=== PATIENT | female | born 1950 | race Caucasian/White ===

== ENCOUNTER 2016-03-28 22:14 | Inpatient (IN) | payer MEDICARE, OTHER ==
[~2016-03-28] VITALS: Ht 162.6 cm; Wt 69.4 kg
[2016-03-28] MEDS ORDERED: HYDROCODONE/APAP 5/325MG 1 EACH TABLET ONE (22:46)
[2016-03-28] MEDS ORDERED: HYDROCODONE/APAP 5/325MG 1 EACH TABLET PO ONE (23:30)
[2016-03-29] MEDS ORDERED: HYDROCODONE/APAP 5/325MG 1 EACH TABLET PO PRN ×2 (01:30→04:30)
[2016-03-29] MEDS ORDERED: HYDROCODONE/APAP 5/325MG 1 EACH TABLET ONE (01:31)
[2016-03-29 01:37] LABS: BASOPHILS % (AUTO) 0.3 % (0.0-2.0); DIFF TOTAL % 100 %; EOSINOPHILS # (AUTO) 0.1 /CMM (0.0-0.7); EOSINOPHILS % (AUTO) 1.1 % (0.0-6.0); HEMATOCRIT 33 % (33-45); HEMOGLOBIN 11.3 g/dL (11.5-14.8); LYMPHOCYTES # (AUTO) 1.7 /CMM (0.8-4.8); LYMPHOCYTES % (AUTO) 17.2 % (20.0-44.0); MEAN CORPUSCULAR HEMOGLOBIN 31 PG (26.0-33.0); MEAN CORPUSCULAR HGB CONC 34 g/dl (31.0-36.0); MEAN CORPUSCULAR VOLUME 92 fL (82-100); MONOCYTES # (AUTO) 0.5 /CMM (0.1-1.30); MONOCYTES % (AUTO) 5.2 % (2.0-12.0); NEUTROPHILS # (AUTO) 7.7 /CMM (1.8-8.9); NEUTROPHILS % (AUTO) 76.2 % (43.0-81.0); PLATELET COUNT (AUTO) 270 /CMM (150-450); RED BLOOD CELL COUNT(AUTO) 3.62 MIL/uL (4.0-5.2); WHITE BLOOD COUNT (AUTO) 10.1 K/uL (4.3-11.0)
[2016-03-29 01:43] LABS: CREATININE 0.7 mg/dL (0.6-1.3); POTASSIUM 3.9 mmol/L (3.5-5.1)
[2016-03-29 01:49] LABS: CALCIUM, SERUM 8.3 mg/dL (8.5-10.1)
[2016-03-29 02:03] LABS: INR 1.06 (0.87-1.13); PROTHROMBIN TIME 11.1 SECS (9.5-12.7)
[2016-03-29 02:45] VITALS: BP 138/74
[2016-03-29] MEDS ORDERED: HYDROCODONE/APAP 10/325MG 1 EA TABLET ONE (04:10)
[2016-03-29] MEDS ORDERED: HYDROCODONE/APAP 10/325MG 1 EA TABLET PO PRN (04:30)
[2016-03-29] MEDS ORDERED: ONDANSETRON HCL/PF 4 MG/2 ML VIAL IVP PRN ×2 (04:30→18:30)
[2016-03-29] MEDS ORDERED: ZOLPIDEM TARTRATE 5 MG TABLET PO PRN (04:30)
[2016-03-29] MEDS ORDERED: MAG HYDROX/AL HYDROX/SIMETH 30 ML UDC PO PRN (04:30)
[2016-03-29] MEDS ORDERED: ACETAMINOPHEN 325 MG TABLET PO PRN (04:30)
[2016-03-29] MEDS ORDERED: MORPHINE SULFATE INJ 2 MG/ML DISP.SYRIN IV PRN (04:30)
[2016-03-29] MEDS ORDERED: MAGNESIUM HYDROXIDE 30 ML UDC PO PRN (04:30)
[2016-03-29] MEDS: PANTOPRAZOLE 40 MG TABLET.DR PO SCH (07:30)
[2016-03-29 08:00] VITALS: BP 119/63
[2016-03-29 08:20] LABS: PHOSPHORUS 3.4 mg/dL (2.5-4.9)
[2016-03-29 08:44] LABS: TROPONIN I < 0.017 ng/mL (0.00-0.056)
[2016-03-29] MEDS ORDERED: ATENOLOL 25 MG TABLET PO SCH (09:00)
[2016-03-29] MEDS ORDERED: FENTANYL PF 100MCG/2ML AMPUL ONE ×3 (15:05→18:17)
[2016-03-29] MEDS ORDERED: MIDAZOLAM HCL 2 MG/2ML VIAL ONE (15:05)
[2016-03-29] MEDS ORDERED: BACITRACIN 50000 UNITS/VIAL ONE (15:08)
[2016-03-29 15:19] LABS: IRON, SERUM 35 ug/dl (50-175); PERCENT SATURATION 15 % (14-33); TOTAL IRON BINDING CAPACITY 231 ug/dl (250-450)
[2016-03-29 16:45] LABS: CHOLESTEROL 146 mg/dL (<200); HDL CHOLESTEROL 37 mg/dL (40-60); LDL 95 mg/dL (0-99); THYROID STIMULATING HORMONE 3.991 uIU/mL (0.358-3.74); TRIGLYCERIDES 77 mg/dL (30-150)
[2016-03-29] MEDS: GABAPENTIN 300 MG CAPSULE PO SCH ×2 (17:47→21:26)
[2016-03-29] MEDS ORDERED: MORPHINE SULFATE INJ 4 MG/ML DISP.SYRIN IV PRN (18:30)
[2016-03-29] MEDS ORDERED: oxyCODONE/APAP (5/325 MG) 1 UDTAB TABLET PO PRN ×2 (18:30)
[2016-03-29 20:00] VITALS: BP 106/62
[2016-03-29] MEDS ORDERED: ONDANSETRON HCL/PF 4 MG/2 ML VIAL IV PRN (20:00)
[2016-03-29] MEDS ORDERED: ONDANSETRON HCL/PF 4 MG/2 ML VIAL IV ONE ×2 (20:00)
[2016-03-29] MEDS: ATENOLOL 25 MG TABLET PO SCH (21:33)
[2016-03-30] MEDS ORDERED: IV SET PRIMARY 1 EA INFUS.SET MC ONE (00:01)
[2016-03-30] MEDS: ANCEF 1 GM/50 ML D5W IV SCH ×6 (00:11→17:31)
[2016-03-30 07:49] LABS: BASOPHILS % (AUTO) 0.5 % (0.0-2.0); DIFF TOTAL % 100 %; EOSINOPHILS # (AUTO) 0.1 /CMM (0.0-0.7); EOSINOPHILS % (AUTO) 1.2 % (0.0-6.0); HEMATOCRIT 32 % (33-45); HEMOGLOBIN 10.7 g/dL (11.5-14.8); LYMPHOCYTES # (AUTO) 1.5 /CMM (0.8-4.8); LYMPHOCYTES % (AUTO) 15.4 % (20.0-44.0); MEAN CORPUSCULAR HEMOGLOBIN 31 PG (26.0-33.0); MEAN CORPUSCULAR HGB CONC 34 g/dl (31.0-36.0); MEAN CORPUSCULAR VOLUME 93 fL (82-100); MONOCYTES # (AUTO) 0.8 /CMM (0.1-1.30); MONOCYTES % (AUTO) 8.5 % (2.0-12.0); NEUTROPHILS # (AUTO) 7.2 /CMM (1.8-8.9); NEUTROPHILS % (AUTO) 74.4 % (43.0-81.0); PLATELET COUNT (AUTO) 251 /CMM (150-450); RED BLOOD CELL COUNT(AUTO) 3.44 MIL/uL (4.0-5.2); WHITE BLOOD COUNT (AUTO) 9.6 K/uL (4.3-11.0)
[2016-03-30 08:00] VITALS: BP 97/57
[2016-03-30 08:09] LABS: TROPONIN I 0.019 ng/mL (0.00-0.056)
[2016-03-30 08:11] LABS: ALBUMIN 3.3 g/dL (3.4-5.0); BILIRUBIN,TOTAL 0.4 mg/dL (0.2-1.0); CREATININE 0.8 mg/dL (0.6-1.3); POTASSIUM 3.8 mmol/L (3.5-5.1); TOTAL PROTEIN, SERUM 6.2 g/dL (6.4-8.2)
[2016-03-30] MEDS ORDERED: IV SET PRIMARY PUMP SET 1 EA INFUS.SET MC ONE (08:34)
[2016-03-30] MEDS ORDERED: IV NS 0.9% 250 ML IV ONE (08:34)
[2016-03-30] MEDS ORDERED: SECONDARY IV SET 1 EA INFUS.SET MC ONE (08:34)
[2016-03-30] MEDS: PANTOPRAZOLE 40 MG TABLET.DR PO SCH (08:35)
[2016-03-30] MEDS: LEVOTHYROXINE SODIUM 125 MCG TABLET PO SCH (08:42)
[2016-03-30] MEDS ORDERED: BUPIVACAINE 0.5 % PF 150 MG/30 ML VIAL ONE (09:13)
[2016-03-30] MEDS: HYDROCODONE/APAP 5/325MG 1 EACH TABLET PO PRN ×3 (09:26→20:28)
[2016-03-30] MEDS: HYDROCODONE/APAP 10/325MG 1 EA TABLET PO PRN (12:19)
[2016-03-30] MEDS: ENOXAPARIN SODIUM 40 MG/0.4 ML DISP.SYRIN SQ SCH (15:56)
[2016-03-30 16:00] VITALS: BP 108/59
[2016-03-30] MEDS: GABAPENTIN 300 MG CAPSULE PO SCH ×2 (17:32→23:12)
[2016-03-30 20:00] VITALS: BP 121/72
[2016-03-30 22:00] VITALS: BP 121/72
[2016-03-30] MEDS: ATENOLOL 25 MG TABLET PO SCH (22:07)
[2016-03-31 07:58] LABS: BASOPHILS % (AUTO) 0.5 % (0.0-2.0); DIFF TOTAL % 100 %; EOSINOPHILS # (AUTO) 0.1 /CMM (0.0-0.7); EOSINOPHILS % (AUTO) 0.8 % (0.0-6.0); HEMATOCRIT 30 % (33-45); HEMOGLOBIN 10.3 g/dL (11.5-14.8); LYMPHOCYTES # (AUTO) 1.1 /CMM (0.8-4.8); LYMPHOCYTES % (AUTO) 12.1 % (20.0-44.0); MEAN CORPUSCULAR HEMOGLOBIN 32 PG (26.0-33.0); MEAN CORPUSCULAR HGB CONC 34 g/dl (31.0-36.0); MEAN CORPUSCULAR VOLUME 93 fL (82-100); MONOCYTES # (AUTO) 0.9 /CMM (0.1-1.30); MONOCYTES % (AUTO) 9.8 % (2.0-12.0); NEUTROPHILS # (AUTO) 6.9 /CMM (1.8-8.9); NEUTROPHILS % (AUTO) 76.8 % (43.0-81.0); PLATELET COUNT (AUTO) 232 /CMM (150-450); RED BLOOD CELL COUNT(AUTO) 3.23 MIL/uL (4.0-5.2)
[2016-03-31 08:00] VITALS: BP_SYST 122; BP_SYST 90; BP_DIAS 58; BP_DIAS 68
[2016-03-31 08:17] LABS: CREATININE 0.7 mg/dL (0.6-1.3); POTASSIUM 3.9 mmol/L (3.5-5.1)
[2016-03-31] MEDS: PANTOPRAZOLE 40 MG TABLET.DR PO SCH (08:29)
[2016-03-31] MEDS: LEVOTHYROXINE SODIUM 125 MCG TABLET PO SCH (08:29)
[2016-03-31 16:00] VITALS: BP 110/64
[2016-03-31] MEDS: GABAPENTIN 300 MG CAPSULE PO SCH ×2 (16:48→21:44)
[2016-03-31 18:00] VITALS: BP 110/64
[2016-03-31 20:00] VITALS: BP 109/66
[2016-03-31 21:00] VITALS: BP 109/68
[2016-03-31] MEDS: ATENOLOL 25 MG TABLET PO SCH (21:44)
[2016-03-31] MEDS: ENOXAPARIN SODIUM 40 MG/0.4 ML DISP.SYRIN SQ SCH (21:48)
[2016-04-01] MEDS: HYDROCODONE/APAP 10/325MG 1 EA TABLET PO PRN (04:15)
[2016-04-01 08:00] VITALS: BP 114/66
[2016-04-01 08:41] LABS: BASOPHILS % (AUTO) 0.5 % (0.0-2.0); DIFF TOTAL % 100 %; EOSINOPHILS # (AUTO) 0.1 /CMM (0.0-0.7); EOSINOPHILS % (AUTO) 2.1 % (0.0-6.0); HEMATOCRIT 28 % (33-45); HEMOGLOBIN 9.6 g/dL (11.5-14.8); LYMPHOCYTES # (AUTO) 1.5 /CMM (0.8-4.8); LYMPHOCYTES % (AUTO) 20.8 % (20.0-44.0); MEAN CORPUSCULAR HEMOGLOBIN 32 PG (26.0-33.0); MEAN CORPUSCULAR HGB CONC 35 g/dl (31.0-36.0); MEAN CORPUSCULAR VOLUME 92 fL (82-100); MONOCYTES # (AUTO) 0.7 /CMM (0.1-1.30); MONOCYTES % (AUTO) 9.4 % (2.0-12.0); NEUTROPHILS # (AUTO) 4.9 /CMM (1.8-8.9); NEUTROPHILS % (AUTO) 67.2 % (43.0-81.0); PLATELET COUNT (AUTO) 224 /CMM (150-450); RED BLOOD CELL COUNT(AUTO) 3.02 MIL/uL (4.0-5.2); WHITE BLOOD COUNT (AUTO) 7.2 K/uL (4.3-11.0)
[2016-04-01] MEDS: LEVOTHYROXINE SODIUM 125 MCG TABLET PO SCH (08:49)
[2016-04-01] MEDS: PANTOPRAZOLE 40 MG TABLET.DR PO SCH (08:50)
[2016-04-01 09:08] LABS: CALCIUM, SERUM 8.3 mg/dL (8.5-10.1); CREATININE 0.7 mg/dL (0.6-1.3); POTASSIUM 3.9 mmol/L (3.5-5.1)
[2016-04-01] MEDS ORDERED: IBUPROFEN 400 MG TABLET PO PRN (11:30)
[2016-04-01] MEDS: IBUPROFEN 400 MG TABLET PO PRN ×2 (11:57→19:26)
[2016-04-01 16:00] VITALS: BP 116/60
[2016-04-01] MEDS: GABAPENTIN 300 MG CAPSULE PO SCH ×2 (17:06→21:37)
[2016-04-01 20:00] VITALS: BP 117/73
[2016-04-01] MEDS: ATENOLOL 25 MG TABLET PO SCH (21:37)
[2016-04-01] MEDS: ENOXAPARIN SODIUM 40 MG/0.4 ML DISP.SYRIN SQ SCH (21:38)
[2016-04-02] MEDS: HYDROCODONE/APAP 10/325MG 1 EA TABLET PO PRN (03:59)
[2016-04-02] MEDS: LEVOTHYROXINE SODIUM 125 MCG TABLET PO SCH (08:57)
[2016-04-02] MEDS: PANTOPRAZOLE 40 MG TABLET.DR PO SCH (08:57)
[2016-04-02 09:00] VITALS: BP 113/65
[2016-04-02 09:03] VITALS: BP 113/65
[2016-04-02 09:59] LABS: BASOPHILS % (AUTO) 0.7 % (0.0-2.0); DIFF TOTAL % 100 %; EOSINOPHILS # (AUTO) 0.3 /CMM (0.0-0.7); EOSINOPHILS % (AUTO) 4.1 % (0.0-6.0); HEMATOCRIT 32 % (33-45); HEMOGLOBIN 10.5 g/dL (11.5-14.8); LYMPHOCYTES # (AUTO) 1.7 /CMM (0.8-4.8); LYMPHOCYTES % (AUTO) 25.9 % (20.0-44.0); MEAN CORPUSCULAR HEMOGLOBIN 31 PG (26.0-33.0); MEAN CORPUSCULAR HGB CONC 33 g/dl (31.0-36.0); MEAN CORPUSCULAR VOLUME 92 fL (82-100); MONOCYTES # (AUTO) 0.5 /CMM (0.1-1.30); MONOCYTES % (AUTO) 7.4 % (2.0-12.0); NEUTROPHILS # (AUTO) 4.1 /CMM (1.8-8.9); NEUTROPHILS % (AUTO) 61.9 % (43.0-81.0); PLATELET COUNT (AUTO) 325 /CMM (150-450); RED BLOOD CELL COUNT(AUTO) 3.43 MIL/uL (4.0-5.2); WHITE BLOOD COUNT (AUTO) 6.6 K/uL (4.3-11.0)
[2016-04-02 10:18] LABS: CALCIUM, SERUM 8.8 mg/dL (8.5-10.1); CREATININE 0.7 mg/dL (0.6-1.3); POTASSIUM 4.4 mmol/L (3.5-5.1)
[2016-04-02 16:00] VITALS: BP 147/84
== END 2016-04-02 17:51 | disposition home health service (06) | DRG 494 ==
LOC: ER 22:15 → MED 03-29 01:18 → MEDSG2 03-30 16:40
PROVIDERS: ADMIT Nurse Practitioner Acute Care; ATTEND Nurse Practitioner Acute Care
PROC: 0QSG04Z Reposition Right Tibia with Internal Fixation Device, Open Approach (ICD-10-PCS; 2016-03-29)
PROC: 0QSJ04Z Reposition Right Fibula with Internal Fixation Device, Open Approach (ICD-10-PCS; principal; 2016-03-29 16:00)
DX: M80.061A Age-related osteoporosis with current pathological fracture, right lower leg, initial encounter for fracture (principal); W01.0XXA Fall on same level from slipping, tripping and stumbling without subsequent striking against object, initial encounter; Y92.9 Unspecified place or not applicable; Z96.651 Presence of right artificial knee joint; Y93.9 Activity, unspecified; Y92.009 Unspecified place in unspecified non-institutional (private) residence as the place of occurrence of the external cause; Y99.9 Unspecified external cause status; D64.9 Anemia, unspecified; I71.2 Thoracic aortic aneurysm, without rupture; G89.29 Other chronic pain; K21.9 Gastro-esophageal reflux disease without esophagitis
CPT/HCPCS: 36415; 71010-TC; 73590-TC; 73600-TC; 80048-TC; 80053-TC; 80061-TC; 82306; 82728-TC; 83540-TC; 83735-TC; 84100-TC; 84439-TC; 84443-TC; 84484-TC; 85025-TC; 85730-TC; 86850-TC; 87081-TC; 93307-TC; 97001-TC; 97110-TC; 97116-TC; 97530-TC; A4606; A6402; J0690; J1650; J2250; J2405; J3010; J3490; J7050; J7060; Z7610

== ENCOUNTER 2016-05-29 11:30 | Outpatient (CLI) | payer MEDICARE, BC | END 2016-05-29 23:59 | disposition home health service (06) | LOC: WOU 11:30 | PROVIDERS: ATTEND Surgery | DX: T81.31XA Disruption of external operation (surgical) wound, not elsewhere classified, initial encounter (principal); R21 Rash and other nonspecific skin eruption; F41.9 Anxiety disorder, unspecified; T84.622D Infection and inflammatory reaction due to internal fixation device of right tibia, subsequent encounter | CPT/HCPCS: 11044; 87070; 87075; A6402 ==

== ENCOUNTER 2016-06-05 10:56 | Outpatient (CLI) | payer MEDICARE, BC | END 2016-06-05 23:59 | disposition home health service (06) | LOC: WOU 10:56 | PROVIDERS: ATTEND Surgery | DX: T81.31XA Disruption of external operation (surgical) wound, not elsewhere classified, initial encounter (principal); F41.9 Anxiety disorder, unspecified; M96.89 Other intraoperative and postprocedural complications and disorders of the musculoskeletal system; M87.9 Osteonecrosis, unspecified; T84.622D Infection and inflammatory reaction due to internal fixation device of right tibia, subsequent encounter; Z85.831 Personal history of malignant neoplasm of soft tissue; Z99.3 Dependence on wheelchair | CPT/HCPCS: 11044; 87070-TC; 87186-TC; A6402 ==

== ENCOUNTER 2016-06-06 13:47 | Outpatient (CLI) | payer MEDICARE, BC | END 2016-06-06 23:59 | disposition home or self-care (01) | LOC: WOU 13:47 | PROVIDERS: ATTEND Internal Medicine Infectious Disease | DX: T81.31XA Disruption of external operation (surgical) wound, not elsewhere classified, initial encounter (principal); T84.62 Infection and inflammatory reaction due to internal fixation device of leg; T84.622D Infection and inflammatory reaction due to internal fixation device of right tibia, subsequent encounter; B95.61 Methicillin susceptible Staphylococcus aureus infection as the cause of diseases classified elsewhere; Z85.9 Personal history of malignant neoplasm, unspecified; E07.9 Disorder of thyroid, unspecified; L02.415 Cutaneous abscess of right lower limb | CPT/HCPCS: A6402; G0463 ==

== ENCOUNTER 2016-06-12 13:03 | Outpatient (CLI) | payer MEDICARE, BC | END 2016-06-12 23:59 | disposition home health service (06) | LOC: WOU 13:03 | PROVIDERS: ATTEND Surgery | DX: T81.31XA Disruption of external operation (surgical) wound, not elsewhere classified, initial encounter (principal); F41.9 Anxiety disorder, unspecified; T84.62 Infection and inflammatory reaction due to internal fixation device of leg; T84.622D Infection and inflammatory reaction due to internal fixation device of right tibia, subsequent encounter; B95.61 Methicillin susceptible Staphylococcus aureus infection as the cause of diseases classified elsewhere; Z85.9 Personal history of malignant neoplasm, unspecified; E07.9 Disorder of thyroid, unspecified; L02.415 Cutaneous abscess of right lower limb | CPT/HCPCS: 11044 ==

== ENCOUNTER 2016-06-19 12:56 | Outpatient (CLI) | payer MEDICARE, BC | END 2016-06-19 23:59 | disposition home health service (06) | LOC: WOU 12:56 | PROVIDERS: ATTEND Surgery | DX: T81.31XA Disruption of external operation (surgical) wound, not elsewhere classified, initial encounter (principal); F41.9 Anxiety disorder, unspecified; T84.62 Infection and inflammatory reaction due to internal fixation device of leg; T84.622D Infection and inflammatory reaction due to internal fixation device of right tibia, subsequent encounter; Z85.9 Personal history of malignant neoplasm, unspecified; E07.9 Disorder of thyroid, unspecified; L02.415 Cutaneous abscess of right lower limb; R26.2 Difficulty in walking, not elsewhere classified; M62.50 Muscle wasting and atrophy, not elsewhere classified, unspecified site | CPT/HCPCS: 11044; A6402 ==

== ENCOUNTER 2016-06-26 13:03 | Outpatient (CLI) | payer MEDICARE, BC | END 2016-06-26 23:59 | disposition home health service (06) | LOC: WOU 13:03 | PROVIDERS: ATTEND Surgery | DX: T81.31XA Disruption of external operation (surgical) wound, not elsewhere classified, initial encounter (principal); T84.62 Infection and inflammatory reaction due to internal fixation device of leg; T84.622D Infection and inflammatory reaction due to internal fixation device of right tibia, subsequent encounter; Z85.9 Personal history of malignant neoplasm, unspecified; F41.9 Anxiety disorder, unspecified; E07.9 Disorder of thyroid, unspecified; L02.415 Cutaneous abscess of right lower limb; R26.2 Difficulty in walking, not elsewhere classified; M62.50 Muscle wasting and atrophy, not elsewhere classified, unspecified site; Z88.2 Allergy status to sulfonamides | CPT/HCPCS: 11042; A6402 ==

== ENCOUNTER 2016-07-03 12:58 | Outpatient (CLI) | payer MEDICARE, BC | END 2016-07-03 23:59 | disposition home health service (06) | LOC: WOU 12:58 | PROVIDERS: ATTEND Surgery | DX: T81.31XD Disruption of external operation (surgical) wound, not elsewhere classified, subsequent encounter (principal); T84.62 Infection and inflammatory reaction due to internal fixation device of leg; T84.622D Infection and inflammatory reaction due to internal fixation device of right tibia, subsequent encounter; Z85.9 Personal history of malignant neoplasm, unspecified; F41.9 Anxiety disorder, unspecified; E07.9 Disorder of thyroid, unspecified; R26.2 Difficulty in walking, not elsewhere classified; M62.50 Muscle wasting and atrophy, not elsewhere classified, unspecified site; Z88.2 Allergy status to sulfonamides | CPT/HCPCS: A6402; G0463 ==

== ENCOUNTER 2016-07-10 13:15 | Outpatient (CLI) | payer MEDICARE, BC | END 2016-07-10 23:59 | disposition home health service (06) | LOC: WOU 13:15 | PROVIDERS: ATTEND Surgery | DX: T81.31XD Disruption of external operation (surgical) wound, not elsewhere classified, subsequent encounter (principal); T84.62 Infection and inflammatory reaction due to internal fixation device of leg; T84.622D Infection and inflammatory reaction due to internal fixation device of right tibia, subsequent encounter; Z85.9 Personal history of malignant neoplasm, unspecified; F41.9 Anxiety disorder, unspecified; E07.9 Disorder of thyroid, unspecified; R26.2 Difficulty in walking, not elsewhere classified; M62.50 Muscle wasting and atrophy, not elsewhere classified, unspecified site; Z88.2 Allergy status to sulfonamides | CPT/HCPCS: G0463 ==

== ENCOUNTER 2016-07-24 13:01 | Outpatient (CLI) | payer MEDICARE, BC | END 2016-07-24 23:59 | disposition home or self-care (01) | LOC: WOU 13:01 | PROVIDERS: ATTEND Surgery | DX: T81.31XD Disruption of external operation (surgical) wound, not elsewhere classified, subsequent encounter (principal); Z87.81 Personal history of (healed) traumatic fracture; F41.9 Anxiety disorder, unspecified | CPT/HCPCS: A6402; G0463 ==

== ENCOUNTER 2019-10-30 14:20 | Outpatient (CLI) | payer MEDICARE, BC | END 2019-10-30 23:59 | disposition home or self-care (01) | LOC: WOU 14:20 | PROVIDERS: ATTEND Surgery | DX: S91.011A Laceration without foreign body, right ankle, initial encounter (principal); W45.8XXA Other foreign body or object entering through skin, initial encounter; Y93.89 Activity, other specified; Y92.89 Other specified places as the place of occurrence of the external cause; F41.9 Anxiety disorder, unspecified | CPT/HCPCS: 11042 ==